=== PATIENT | male | born 1965 | race Caucasian/White ===

== ENCOUNTER 2016-08-30 10:43 | Emergency (ER) | payer BC ==
[2016-08-30 10:55] VITALS: BP 112/89; PULSE 75; TEMP 98; BMI 29.8
--- NOTE | 2016-08-30 12:08 | PDOC ---
History of Present Illness - General Chief Complaint: Eye Problem Stated Complaint: EYE PROBLEM Time Seen by Provider: 08/30/16 11:45 History Source: Patient Exam Limitations: No Limitations - History of Present Illness Initial Comments: 08/30/16 12:03 CHIEF COMPLAINT: Left-sided facial pressure pain, redness to left eye, green nasal discharge from left side HISTORY OF PRESENT ILLNESS: Patient is an otherwise healthy 50-year-old male presents emergency Department with 2 week history of left frontal sinus pressure and pain with drainage, green from left nares. Today developed redness to left eye with some drainage. No pain denies any increased visual disturbance . 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 Patient denies any pain or floaters to eye. REVIEW OF SYSTEMS: GENERAL/CONSTITUTIONAL: No fever or chills. No weakness. No weight change. HEAD, EYES, EARS, NOSE AND THROAT: Positive frontal sinus pressure and pain . Drainage from left nares . No change in vision. Redness and drainage to left eye . No ear pain or discharge. No sore throat. RESPIRATORY: No cough, wheezing, or hemoptysis. SKIN : No rash or easy bruising. NEUROLOGIC: No headache, vertigo, loss of consciousness, or loss of sensation. HEMATOLOGIC/LYMPHATIC: No lymphadenopathy ALLERGIC/IMMUNOLOGIC: No hives or skin allergy. No latex allergy. PHYSICAL EXAM: GENERAL: The patient is awake, alert, and fully oriented, in no acute distress. HEAD: Normal with no signs of trauma. EYES: Pupils equal, round and reactive to light, extraocular movements intact, sclera anicteric, conjunctiva injected on left, extending to limbus after fluorescein staining, no corneal abrasion noted. ENT: Ears normal, nares patent, erythema with drainage from left nares, there is frontal sinus pressure and pain . oropharynx clear without exudates. Moist mucous membranes. NECK: Normal range of motion, supple without lymphadenopathy, JVD, or masses. LUNGS: Breath sounds equal, clear to auscultation bilaterally. No wheezes, and no crackles. NEUROLOGICAL: Cranial nerves II through XII grossly intact. Normal speech, normal gait. SKIN: No erythema no facial edema. Warm, Dry, normal turgor, no rashes or lesions noted. Past History - Past Medical History Allergies/Adverse Reactions: Allergies Allergy/AdvReac Type Severity Reaction Status Date / Time No Known Allergies Allergy Verified 08/30/16 10:55 Home Medications: Ambulatory Orders Amoxicillin/Potassium Clav [Augmentin 875-125 Tablet] 1 each PO BID #14 tablet 08/30/16 Fluticasone Prop 0.05% Nasal [Flonase -] 1 spray NS BID #1 spray 08/30/16 Other medical history: PATIENT DENIES MEDICAL HISTORY - Psycho/Social/Smoking Cessation Hx Suicidal Ideation: No Smoking History: Current every day smoker Number of Cigarettes Smoked Daily: 5 Information on smoking cessation initiated: No Hx Alcohol Use: No Drug/Substance Use Hx: No *Physical Exam - Vital Signs Last Vital Signs Temp Pulse Resp BP Pulse Ox 98.0 F 75 18 112/89 98 08/30/16 10:50 08/30/16 10:50 08/30/16 10:50 08/30/16 10:50 08/30/16 10:50 Medical Decision Making - Medical Decision Making 08/30/16 12:05 A/P: Patient with clinical signs of an acute sinusitis. We'll DC patient home on Augmentin and Flonase, patient is to follow-up with Dr. Kelly conway two-day at 1 :15 for evaluation of left eye due to history of retinal detachment and redness sudden onset from a.m. Patient reports vision of 200/20 to left eye as his baseline. Unable to perform visual acuity patient with out his corrective lenses I discussed the physical exam findings, ancillary test results and final diagnoses with the patient. I answered all of the patient's questions. The patient was satisfied with the care received and felt comfortable with the discharge plan and treatment plan. The patient will follow-up and will return to the Emergency Department with any new, persistent or worsening symptoms. 08/30/16 17:23 *DC/Admit/Observation/Transfer Diagnosis at time of Disposition: Sinusitis Qualifiers: Sinusitis location: frontal Chronicity: acute Recurrence: non-recurrent Qualified Code(s): J01.10 - Acute frontal sinusitis, unspecified - Discharge Dispostion Admit: No - Prescriptions Prescriptions: Amoxicillin/Potassium Clav [Augmentin 875-125 Tablet] 1 each PO BID #14 tablet Fluticasone Prop 0.05% Nasal [Flonase -] 1 spray NS BID #1 spray - Referrals Referrals: Virgil Lagunas MD [Non Staff, Medical] - - Patient Instructions Printed Discharge Instructions: Sinusitis (Alternative Therapy) Additional Instructions: Please follow up with PMD for evaluation in three days if symptoms persist. Please go to the office of Dr. Lagunas today by 1:15 pm. If headache, nausea, vomiting or other concerns return to the ER. - Post Discharge Activity Work/School Note: Back to Work
== END 2016-08-30 12:14 | disposition home or self-care (01) ==
LOC: JERFT 10:43
DX: J01.10 Acute frontal sinusitis, unspecified (principal)
CPT/HCPCS: 99281-25

== ENCOUNTER 2016-09-04 11:40 | Emergency (ER) | payer BC ==
[2016-09-04 11:45] VITALS: BP 145/74; PULSE 88; TEMP 98.2; BMI 30.5
--- NOTE | 2016-09-04 12:32 | PDOC ---
History of Present Illness - General Chief Complaint: Eye Problem Stated Complaint: EYE PROBLEM Time Seen by Provider: 09/04/16 12:02 History Source: Patient Exam Limitations: No Limitations - History of Present Illness Initial Comments: 09/04/16 12:34 CHIEF COMPLAINT: discomfort right eye with redness, discharge HISTORY OF PRESENT ILLNESS: Pt is a 50-year-old male with a history of left on a detached retina here today complaining of discomfort to right eye with a yellowish discharge in the morning with a sensation of having like sand in his right eye. Patient denies any change in his vision to his right eye. 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 Patient has slight redness of right eye noted. Patient was supposed to follow up with an network systems consultant after he was seen here on 08/30/2016 however has not followed up with him yet. Patient discharged on Augmentin for sinus infection on 08/30/2016 but no drops for his eye. 09/04/16 12:50 Timing/Duration: changing over time (last 3 days) Severity: mild Associated Symptoms: reports: denies symptoms Past History - Past Medical History Allergies/Adverse Reactions: Allergies Allergy/AdvReac Type Severity Reaction Status Date / Time No Known Allergies Allergy Verified 09/04/16 11:44 Home Medications: Ambulatory Orders Tobramycin 0.3% Ophth Soln [Tobrex Ophthalmic Solution -] 1 drop OD Q6HPO #1 drops 09/04/16 Other medical history: detached retina left eye wit block procedure - Psycho/Social/Smoking Cessation Hx Anxiety: No Suicidal Ideation: No Smoking History: Current every day smoker Number of Cigarettes Smoked Daily: 4 Information on smoking cessation initiated: Yes 'Breaking Loose' booklet given: 09/04/16 Hx Alcohol Use: No Drug/Substance Use Hx: No Substance Use Type: None Review of Systems - Review of Systems Able to Perform ROS?: Yes Constitutional: No: Symptoms Reported HEENTM: Yes: Eye Pain (rt. eye discomfort), Other (discomfort rt. eye with yellowish discharge feels sand like senstaion in rt. eye ). No: Blurred Vision , Tearing Respiratory: No: Symptoms reported Cardiac (ROS): No: Symptoms Reported ABD/GI: No: Symptoms Reported : No: Symptoms Reported Musculoskeletal: No: Symptoms Reported Integumentary: No: Symptoms Reported Neurological: No: Symptoms reported Endocrine: No: Symptoms Reported *Physical Exam - Vital Signs Last Vital Signs Temp Pulse Resp BP Pulse Ox 98.2 F 88 20 145/74 97 09/04/16 11:41 09/04/16 11:41 09/04/16 11:41 09/04/16 11:41 09/04/16 11:41 - Physical Exam General Appearance: Yes: Appropriately Dressed HEENT: positive: EOMI, SUSI, Other (erythema rt. conjunctiva,rt. sclera injected no corneal abrasion noted rt. eye, no foreign body, left eye minimal conjunctiva erythema). negative: Photophobia Neck: negative: Lymphadenopathy (R), Lymphadenopathy (L) Respiratory/Chest: positive: Lungs Clear, Normal Breath Sounds. negative: Chest Tender, Respiratory Distress Cardiovascular: positive: Regular Rhythm, Regular Rate, S1, S2 Integumentary: positive: Normal Color Neurologic: positive: Alert, Normal Response, Responsive Medical Decision Making - Medical Decision Making 09/04/16 12:37 Pt is a 50-year-old male with a history of left on a detached retina here today complaining of discomfort to right eye with a yellowish discharge in the morning with a sensation of having like sand in his right eye. Patient denies any change in his vision to his right eye. 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 Patient has slight redness of right eye noted. Patient was supposed to follow up with an network systems consultant after he was seen here on 08/30/2016 however has not followed up with him yet. Patient discharged on Augmentin for sinus infection on 2016 but no drops for his eye. Right eye conjunctivitis 09/04/16 12:50 PLAN: tobramycin 0.3% opth 2 drops right eye every 6 hrs X 5 days follow up with opthomologist as soon as possible 09/04/16 12:54 *DC/Admit/Observation/Transfer Diagnosis at time of Disposition: Conjunctivitis Qualifiers: Conjunctivitis type: acute Acute conjunctivitis type: unspecified Laterality: bilateral Qualified Code(s): H10.33 - Unspecified acute conjunctivitis, bilateral - Discharge Dispostion Disposition: HOME Condition at time of disposition: Stable - Prescriptions Prescriptions: Tobramycin 0.3% Ophth Soln [Tobrex Ophthalmic Solution -] 1 drop OD Q6HPO #1 drops - Patient Instructions Additional Instructions: fOLLOW up with network systems consultant that recommended on your visit here on 2016 as soon as possible Avoid rubbing your eyes Return to emergency room if symptoms worsen or new symptoms develop Patient voiced understanding of discharge instructions and all questions were answered - Post Discharge Activity Work/School Note: Back to Work
== END 2016-09-04 12:49 | disposition home or self-care (01) ==
LOC: JERFT 11:40
DX: H10.31 Unspecified acute conjunctivitis, right eye (principal); Z86.69 Personal history of other diseases of the nervous system and sense organs
CPT/HCPCS: 99281-25

== ENCOUNTER 2016-11-19 10:32 | Emergency (ER) | payer BC ==
[2016-11-19 10:40] VITALS: BP 106/71; PULSE 92; TEMP 98.1; BMI 30.5
--- NOTE | 2016-11-19 11:27 | PDOC ---
History of Present Illness - General Chief Complaint: Cold Symptoms Stated Complaint: SINUS INFECTION Time Seen by Provider: 11/19/16 11:13 History Source: Patient Exam Limitations: No Limitations - History of Present Illness Initial Comments: 11/19/16 11:23 Patient came for evaluation of fullness and pain to his sinuses 3 days. States was fever last night but did not take temperature. Has thick yellow-green coming from nose with fullness and tenderness both frontal and maxillary sinuses. Timing/Duration: reports: changing over time, getting worse Severity: reports: mild, moderate Associated Symptoms: reports: denies symptoms, fever/chills Past History - Travel Traveled outside of the country in the last 30 days: No Close contact w/someone who was outside of country & ill: No - Past Medical History Allergies/Adverse Reactions: Allergies Allergy/AdvReac Type Severity Reaction Status Date / Time No Known Allergies Allergy Verified 11/19/16 10:40 Home Medications: Ambulatory Orders Amox-Tr/K Cl [Augmentin 875Mg Tablet] 1 tab PO BID #20 tablet 11/19/16 Other medical history: Denies - Psycho/Social/Smoking Cessation Hx Anxiety: No Suicidal Ideation: No Smoking History: Current every day smoker Number of Cigarettes Smoked Daily: 3 Information on smoking cessation initiated: Yes 'Breaking Loose' booklet given: 11/19/16 Hx Alcohol Use: No Drug/Substance Use Hx: No Substance Use Type: None Review of Systems - Review of Systems Able to Perform ROS?: Yes Is the patient limited Citizen Of [place] proficient: Yes Constitutional: Yes: Symptoms Reported, See HPI, Fever, Loss of Appetite, Malaise HEENTM: Yes: Symptoms Reported, See HPI, Eye Pain, Nose Congestion Respiratory: Yes: See HPI. No: Symptoms reported, Cough Cardiac (ROS): No: Symptoms Reported All Other Systems: Reviewed and Negative *Physical Exam - Vital Signs Last Vital Signs Temp Pulse Resp BP Pulse Ox 98.1 F 92 H 18 106/71 97 11/19/16 10:37 11/19/16 10:37 11/19/16 10:37 11/19/16 10:37 11/19/16 10:37 - Physical Exam General Appearance: Yes: Nourished, Appropriately Dressed, Apparent Distress HEENT: positive: SUSI, TMs Normal, Nasal Congestion, Rhinorrhea, Sinus Tenderness. negative: Pharynx Normal (has thick white yellow posterior sinus drainage noted in posterior pharynx) Neck: positive: Supple. negative: Lymphadenopathy (R), Lymphadenopathy (L) Respiratory/Chest: positive: Lungs Clear, Normal Breath Sounds Cardiovascular: positive: Regular Rate Gastrointestinal/Abdominal: positive: Soft. negative: Tender Extremity: positive: Normal Capillary Refill, Normal Inspection Integumentary: positive: Normal Color, Dry, Warm, Pale Neurologic: positive: associate producer II-XII NML intact, Fully Oriented, Alert, Normal Mood/ Affect, Normal Response, Motor Strength /5 Progress Note - Progress Note Progress Note: Sinusitis, will treat with Augmentin *DC/Admit/Observation/Transfer Diagnosis at time of Disposition: Sinusitis, acute Qualifiers: Sinusitis location: frontal Recurrence: recurrent Qualified Code(s): J01.11 - Acute recurrent frontal sinusitis - Discharge Dispostion Disposition: HOME Condition at time of disposition: Stable Admit: No - Prescriptions Prescriptions: Amox-Tr/K Cl [Augmentin 875Mg Tablet] 1 tab PO BID #20 tablet - Referrals Referrals: Jim Thomson MD [Staff Physician] - - Patient Instructions Additional Instructions: Rest, drink lots of fluids: Teas, water, soups, Pedialyte Saltwater gargles Steamy showers/seem to face break up mucus Avoid contact with others until fevers and cough resolved Lots of handwashing and good hygiene Continue [id number] medications for symptomatic relief Tylenol or Motrin for fever and pain Amended as directed until completed Followup with private physician in one to 2 days as needed Return to emergency department for worsened symptoms, fevers, dehydration - Post Discharge Activity Work/School Note: Back to Work
== END 2016-11-19 11:33 | disposition home or self-care (01) ==
LOC: JERFT 10:32
DX: J01.11 Acute recurrent frontal sinusitis (principal); F17.210 Nicotine dependence, cigarettes, uncomplicated
CPT/HCPCS: 99281-25

== ENCOUNTER 2017-03-13 11:30 | Emergency (ER) | payer BC ==
[2017-03-13 11:41] VITALS: BP 142/89; PULSE 80; TEMP 98.5; BMI 30.5
--- NOTE | 2017-03-13 13:21 | PDOC ---
History of Present Illness - General Chief Complaint: Respiratory Stated Complaint: SINUS INFECTION Time Seen by Provider: 03/13/17 11:44 History Source: Patient Exam Limitations: No Limitations - History of Present Illness Initial Comments: 03/13/17 13:14 51yo Male patient with no significant past medical history presents to ED c/o sinus tenderness. Patient reports this is the fourth time this year he has had a sinus infection. He reports subjective fever and right earache. Patient denies any other complaints at this time. PCP- None Timing/Duration: reports: getting worse. denies: just prior to arrival, other, constant, changing over time, gone now, intermittent, week, yesterday, this afternoon, this evening, this morning Severity: reports: moderate. denies: mild, severe Possible Cause: Yes: frequent episodes. No: no prior episodes, other, allergen exposure, chronic episodes, illness exposure, irritant gases exposure, occasional episodes, smoke exposure, unknown cause Modifying Factors: improves with: antibiotics. worse with: activity, albuterol inhaler, albuterol nebulizer, coughing, lying down, oxygen, rest, other Associated Symptoms: reports: cough, earache, facial pain, fever/chills, nasal congestion, sinus infection. denies: denies symptoms, chest pain/soreness, dizziness, headache, lightheadedness, muscle aches, nasal drainage, shortness of breath, sore throat, wheezing, other Past History - Travel Traveled outside of the country in the last 30 days: No Close contact w/someone who was outside of country & ill: No - Past Medical History Allergies/Adverse Reactions: Allergies Allergy/AdvReac Type Severity Reaction Status Date / Time No Known Allergies Allergy Verified 03/13/17 11:41 Home Medications: Ambulatory Orders Amox-Tr/K Cl [Augmentin 875Mg Tablet] 1 tab PO BID #20 tablet 11/19/16 Amox-Tr/K Cl [Augmentin - 875Mg Tablet] 1 tab PO BID #20 tablet 03/13/17 Naproxen 500 mg PO BID PRN #30 tablet 03/13/17 COPD: No - Suicide/Smoking/Psychosocial Hx Smoking History: Current every day smoker Number of Cigarettes Smoked Daily: 3 Cigars Per Day: 3 Information on smoking cessation initiated: No 'Breaking Loose' booklet given: 11/19/16 Hx Alcohol Use: No Drug/Substance Use Hx: No Substance Use Type: None Respiratory Specific PMHX - Complaint Specific PMHX Angina: No Bronchitis: No Pneumonia: No Pulmonary Embolus: No TB (Tuberculosis): No Review of Systems - Review of Systems Able to Perform ROS?: Yes Is the patient limited [place] proficient: No Constitutional: Yes: Fever. No: Chills HEENTM: Yes: Ear Pain, Nose Pain, Nose Congestion. No: Nose Bleeding, Throat Pain, Throat Swelling, Mouth Pain Respiratory: Yes: Cough. No: Stridor, Wheezing All Other Systems: Reviewed and Negative *Physical Exam - Vital Signs Last Vital Signs Temp Pulse Resp BP Pulse Ox 98.5 F 80 18 142/89 99 03/13/17 11:38 03/13/17 11:38 03/13/17 11:38 03/13/17 11:38 03/13/17 11:38 - Physical Exam General Appearance: Yes: Nourished, Appropriately Dressed. No: Apparent Distress, Mild Distress, Moderate Distress, Severe Distress HEENT: positive: EOMI, SUSI, Normal Voice, Symmetrical, TMs Normal, Pharynx Normal, Nasal Congestion, Sinus Tenderness, Other (Bilateral nasal passages completely swollen, moderate erythema, with yellow/greenish discharge noted in passage. (Not active discharge).). negative: Normal ENT Inspection, Pharyngeal Erythema, Tonsillar Exudate, Tonsillar Erythema, Rhinorrhea, TM Bulging, TM Dull , TM Erythema Neck: positive: Trachea midline, Supple. negative: Lymphadenopathy (R), Lymphadenopathy (L) Respiratory/Chest: positive: Lungs Clear, Normal Breath Sounds. negative: Respiratory Distress, Accessory Muscle Use, Labored Respiration, Rapid RR, Decreased Breath Sounds, Paradoxal Breathing, Stridor, Wheezing Cardiovascular: positive: Regular Rhythm, Regular Rate Lymphatic: negative: Adenopathy, Tenderness Musculoskeletal: positive: Normal Inspection. negative: CVA Tenderness, Decreased Range of Motion, Vertebral Tenderness Extremity: positive: Normal Capillary Refill, Normal Inspection, Normal Range of Motion. negative: Pedal Edema, Swelling, Calf Tenderness, Erythema, Inflammation Integumentary: positive: Normal Color, Dry, Warm Neurologic: positive: sanding line operator II-XII NML intact, Fully Oriented, Alert, Normal Mood/ Affect, Normal Response, Motor Strength 5/5 Medical Decision Making - Medical Decision Making 03/13/17 13:18 Patient requesting a prescriptions for Naproxsyn for previous injury. *DC/Admit/Observation/Transfer Diagnosis at time of Disposition: Sinusitis Qualifiers: Sinusitis location: unspecified location Chronicity: chronic Qualified Code(s) : J32.9 - Chronic sinusitis, unspecified - Discharge Dispostion Disposition: HOME Condition at time of disposition: Stable Admit: No - Prescriptions Prescriptions: Amox-Tr/K Cl [Augmentin - 875Mg Tablet] 1 tab PO BID #20 tablet Naproxen 500 mg PO BID PRN #30 tablet PRN Reason: Moderate Pain - Referrals Referrals: Bartolome Conti MD [Staff Physician] - - Patient Instructions Printed Discharge Instructions: DI for Sinusitis Additional Instructions: Follow up with Dr. Conti (Internal Medicine) for further evaluation. You should also call to schedule appointment to establish care. Take your medications as prescribed with food. Return if any concerns for further evaluation. Print Language: LITHUANIAN - Post Discharge Activity
== END 2017-03-13 13:27 | disposition home or self-care (01) ==
LOC: JERFT 11:30
DX: J32.9 Chronic sinusitis, unspecified (principal); F17.210 Nicotine dependence, cigarettes, uncomplicated
CPT/HCPCS: 99281-25

== ENCOUNTER 2017-08-26 12:11 | Emergency (ER) | payer BC ==
[2017-08-26 12:16] VITALS: BP 108/73; PULSE 92; TEMP 98.3; BMI 30.5
--- NOTE | 2017-08-26 13:11 | PDOC ---
History of Present Illness - General Chief Complaint: Cold Symptoms Stated Complaint: FLU LIKE SYMPTOMS Time Seen by Provider: 08/26/17 12:32 - History of Present Illness Initial Comments: 51-year-old healthy active male with no pre-existing comorbidities presents for evaluation of 2 days worth of sinus congestion and headache and facial pain. He has associated sore throat as well as a cough which is nonproductive. He denies fever, chills, night sweats. No nausea vomiting. 08/26/17 13:08 Past History - Past Medical History Allergies/Adverse Reactions: Allergies Allergy/AdvReac Type Severity Reaction Status Date / Time No Known Allergies Allergy Verified 08/26/17 12:12 Home Medications: Ambulatory Orders Amox-Tr/K Cl [Augmentin - 875Mg Tablet] 1 tab PO BID #20 tablet 08/26/17 COPD: No - Surgical History Abdominal Surgery: Yes (ING.HERNIA BILAT) - Suicide/Smoking/Psychosocial Hx Smoking History: Current every day smoker Have you smoked in the past 12 months: Yes Number of Cigarettes Smoked Daily: 7 Cigars Per Day: 3 Information on smoking cessation initiated: Yes 'Breaking Loose' booklet given: 08/26/17 Hx Alcohol Use: No Drug/Substance Use Hx: No Substance Use Type: None Review of Systems - Review of Systems Constitutional: Yes: See HPI. No: Chills, Fever HEENTM: Yes: See HPI, Nose Pain, Nose Congestion, Throat Pain, Difficulty Swallowing Respiratory: Yes: See HPI, Cough Neurological: Yes: See HPI, Headache All Other Systems: Reviewed and Negative *Physical Exam - Vital Signs Last Vital Signs Temp Pulse Resp BP Pulse Ox 98.3 F 92 H 18 108/73 100 08/26/17 12:14 08/26/17 12:14 08/26/17 12:14 08/26/17 12:14 08/26/17 12:14 - Physical Exam Comments: GENERAL: The patient is awake, alert, and fully oriented, in no acute distress. HEAD: Normal with no signs of trauma. EYES: Pupils equal, round and reactive to light, extraocular movements intact, sclera anicteric, conjunctiva clear. ENT: Ears normal, nares injected and swollen turbinates, tenderness with sinus percussion oropharynx injected without exudates. Moist mucous membranes. NECK: Normal range of motion, supple without lymphadenopathy, JVD, or masses. LUNGS: Breath sounds equal, clear to auscultation bilaterally. No wheezes, and no crackles. HEART: Regular rate and rhythm, normal S1 and S2 without murmur, rub or gallop. ABDOMEN: Soft, nontender, normoactive bowel sounds. No guarding, no rebound. No masses. EXTREMITIES: Normal range of motion, no edema. No clubbing or cyanosis. No cords, erythema, or tenderness. NEUROLOGICAL: Cranial nerves II through XII grossly intact. Normal speech, normal gait. PSYCH: Normal mood, normal affect. SKIN: Warm, Dry, normal turgor, no rashes or lesions noted. 08/26/17 13:09 Medical Decision Making - Medical Decision Making Strep is negative this appears to be a sinusitis treat him with Augmentin for 10 days and have her follow-up with his primary care physician. 08/26/17 13:52 *DC/Admit/Observation/Transfer Diagnosis at time of Disposition: Sinusitis - Discharge Dispostion Disposition: HOME Condition at time of disposition: Stable Decision to Admit order: No - Referrals Referrals: Jj Santos MD [Staff Physician] - - Patient Instructions Printed Discharge Instructions: Sinusitis, DI for Sinusitis Additional Instructions: Return to the emergency room should symptoms worsen or go unresolved. Have prescribed few a course of antibiotics which she should take and finish. I believe he had a sinus infection. You're rapid strep is negative. I've also given you a note for work. Please follow-up with the primary care physician I provided for a within the next 1-2 days for further evaluation and treatment options. - Post Discharge Activity Forms/Work/School Notes: Back to Work
== END 2017-08-26 14:00 | disposition home or self-care (01) ==
LOC: JERFT 12:11
DX: J32.9 Chronic sinusitis, unspecified (principal); F17.210 Nicotine dependence, cigarettes, uncomplicated
CPT/HCPCS: 87070; 87430; 99281-25